=== PATIENT | female | born 1985 | race Caucasian/White ===

== ENCOUNTER 2023-01-27 09:17 | Outpatient (CLI) | payer OTHER, SELFPAY | END 2023-01-27 09:18 | disposition home or self-care (01) | PROVIDERS: PCP Family Medicine; Visit Provider Registered Nurse | DX: Z01.419 Encounter for gynecological examination (general) (routine) without abnormal findings (principal); Z13.6 Encounter for screening for cardiovascular disorders; Z13.1 Encounter for screening for diabetes mellitus | CPT/HCPCS: 80061; 82947 ==

== ENCOUNTER 2024-02-01 10:36 | Outpatient (CLI) | payer OTHER, SELFPAY | END 2024-02-01 10:37 | disposition home or self-care (01) | LOC: FRMREF 10:38 | PROVIDERS: PCP Family Medicine; Visit Provider Registered Nurse | DX: R23.3 Spontaneous ecchymoses (principal); R63.5 Abnormal weight gain | CPT/HCPCS: 84443 ==

== ENCOUNTER 2024-02-16 10:51 | Outpatient (CLI) | payer OTHER, SELFPAY | END 2024-02-16 10:52 | disposition home or self-care (01) | PROVIDERS: PCP Family Medicine; Visit Provider Obstetrics & Gynecology | DX: N39.3 Stress incontinence (female) (male) (principal); R63.5 Abnormal weight gain; R68.82 Decreased libido | CPT/HCPCS: 84270; 84402; 84403; 84443; 87086 ==

== ENCOUNTER 2024-03-08 14:09 | Outpatient (CLI) | payer OTHER, SELFPAY | END 2024-03-08 14:10 | disposition home or self-care (01) | LOC: FRMREF 14:09 | PROVIDERS: PCP Family Medicine; Visit Provider Family Medicine | DX: R06.09 Other forms of dyspnea (principal); R68.82 Decreased libido | CPT/HCPCS: 80053 ==

== ENCOUNTER 2024-03-22 15:46 | Outpatient (CLI) | payer OTHER, SELFPAY ==
--- NOTE | 2024-03-22 16:00 | CRLHL7_ITS ---
For Patients: As a result of the Century Cures Act, medical imaging exams and procedure reports are released immediately into your electronic medical record. You may view this report before your referring provider. If you have questions, please contact your health care provider. INDICATION: Ten month shortness of breath with exertion TECHNIQUE: CT chest with 95 mL Isovue 370 COMPARISON: None. FINDINGS: Lungs and pleura: 3 millimeter perifissural nodule along the minor fissure a 4 millimeter peripheral left upper lobe nodule . A 4 millimeter right middle lobe nodule on 04/29 11. Heart and vasculature: Heart size is normal. Thoracic aorta and pulmonary artery are normal in caliber. No pulmonary emboli. Lymph nodes/mediastinum: No mediastinal, hilar, or axillary adenopathy. Chest wall: No masses. Upper abdomen: No significant findings. Bones: Unremarkable for age. IMPRESSION: 1. No pulmonary emboli. No acute pulmonary findings. A few small pulmonary nodules measuring up to 4 millimeters follow-up per Fleischner society guidelines. Please note that all CT scans at this facility use dose modulation, iterative reconstruction, and/or weight-based dosing when appropriate to reduce radiation dose to as low as reasonably achievable. Dictated by Christina Bowens MD @ 03/25/2024 9:53:12 AM (Electronically Signed)
== END 2024-03-22 15:47 | disposition home or self-care (01) ==
PROVIDERS: PCP Family Medicine; Visit Provider Family Medicine
DX: R06.09 Other forms of dyspnea (principal); R91.8 Other nonspecific abnormal finding of lung field
CPT/HCPCS: 71275; Q9967

== ENCOUNTER 2024-04-23 10:39 | Outpatient (CLI) | payer OTHER, SELFPAY ==
[2024-04-23 11:37] VITALS: BP 129/82; PULSE 90
--- NOTE | 2024-04-23 11:52 | W.PM.STED ---
Stress Test Note Date Date of test: 04/23/24 Providers Primary care provider: Kirsten Hollins Stress test physician: Joshua Landrum Stress Test Note Stress test ordered: Exercise Stress Test Indication for test: Shortness of breath Results discussion: Patient is a very nice lady who presents for the above test after discussion the risks benefits side effects she would like to proceed cardiac stress test medical history form is reviewed. Pretest EKG shows normal sinus rhythm, no acute ST wave changes. Ventricular rate is 64, blood pressure is excellent at 115/73. Standard [employer] protocol is employed over a time course of 12 minutes 40 seconds, and she achieved a metabolic equivalent of 12.9. Test is terminated because of fulfillment of protocol. She had absolutely no symptoms, shortness of breath chest pain or any anginal equivalent. Review of the tracing shows no dysrhythmias, there is no ST wave changes suggestive of ischemia. Impression: Negative electrographic portion of exercise stress test, subjectively negative, conditioning was felt to be excellent Follow up suggested: Follow-up with primary care, no evidence of ischemia or any cardiac abnormality on stress test. If clinical concern continues, perhaps a stress echo would be a further helpful test.
== END 2024-04-23 10:40 | disposition home or self-care (01) ==
LOC: STRESS 10:41
PROVIDERS: PCP Family Medicine; Visit Provider Family Medicine
DX: R06.09 Other forms of dyspnea (principal)
CPT/HCPCS: 93016; 93017